=== PATIENT | female | born 1965 | race Caucasian/White ===

== ENCOUNTER 2016-03-08 22:52 | Emergency (ER) | payer OTHER ==
[~2016-03-08] VITALS: Ht 154.9 cm; Wt 76.4 kg
[~2016-03-08 22:52] MED LIST: CITA20TA11 PO; DOXE100C4 PO; KLO2T PO; TRAZ-115 PO
[2016-03-08 23:00] VITALS: BP 115/83; PULSE 91; RESP 16; O2SAT 86
--- NOTE | 2016-03-08 23:39 | ED.REPORT ---
HPI-URI / Cough / Cold Date of Service Mar 08, 2016 ED Provider: Doc,Ed MD Nursing Notes Stated Complaint: COUGH, NAUSEA, DIZZINESS Chief Complaint: Respiratory Complaints Allergies: Coded Allergies: codeine (Verified Allergy, Severe, 03/08/16) hydrocodone (Verified Allergy, Severe, Nausea,Vomiting, 03/08/16) Penicillins (Verified Allergy, Unknown, 03/08/16) Scheduled Citalopram (Citalopram) 20 Mg Tablet 20 MG PO DAILY Doxepin (Doxepin) 100 Mg Capsule 100 MG PO HS Trazodone (Trazodone) 50 Mg Tablet 100 MG PO HS Scheduled PRN Clonazepam (Clonazepam) 2 Mg Tab 2 MG PO DAILY PRN PRN For Anxiety General Time Seen by MD: 23:39 Past Medical History Past Medical History Chronic lower back pain Anxiety Reports: Hypertension Past Surgical History Reports: Cholecystectomy, Hysterectomy Smoking History Never Smoker Social History Alcohol Use: Denies alcohol use Drug Use: Denies drug use Ambulatory Status Independent Physical Exam Initial Vital Signs Vital Signs (First) Date Time Temp Pulse Resp B/P Pulse Ox O2 Delivery O2 Flow Rate FiO2 03/08/16 23:00 36.6 91 16 115/83 86 Room Air Interpretation & Diagnostics Lab Results Interpretation Test 03/08/16 00:11 03/09/16 00:11 Discharge & Departure Referrals: Nils Da Silva MD (PCP) Aron Strong DO Mar 08, 2016 23:39
--- NOTE | 2016-03-08 23:41 | ED.REPORT ---
HPI-General Illness Date of Service Mar 08, 2016 ED Provider: Cooper Valverde MD Patient is a 51 year old female who presents to the ED with a cough onset 1 month ago. Patient reports associated chest pain with cough, sore throat, and dizziness. Patient states that she purchased OTC medications for her cough symptoms, hoping that they would resolve. Patient is a nonsmoker and denies a history of asthma but she did receive an inhaler when she was last seen for her cough at Urgent Care. She admits to nausea but denies a fever or vomiting. Nursing Notes Stated Complaint: COUGH, NAUSEA, DIZZINESS Chief Complaint: Respiratory Complaints Nursing Notes Reviewed: Yes Allergies: Coded Allergies: codeine (Verified Allergy, Severe, 03/08/16) hydrocodone (Verified Allergy, Severe, Nausea,Vomiting, 03/08/16) Penicillins (Verified Allergy, Unknown, 03/08/16) Scheduled Citalopram (Citalopram) 20 Mg Tablet 20 MG PO DAILY Doxepin (Doxepin) 100 Mg Capsule 100 MG PO HS Prednisone (PredniSONE) 20 Mg Tablet 60 MG PO DAILY Trazodone (Trazodone) 50 Mg Tablet 100 MG PO HS Scheduled PRN Clonazepam (Clonazepam) 2 Mg Tab 2 MG PO DAILY PRN PRN For Anxiety General Time Seen by MD: 23:40 Chief Complaint Cough Hx Obtained From: Patient Arrived By: Walk-in Sudden in Onset?: No Onset Occurred: More than a week ago... (1 month) Symptom Duration: Since onset Location: : Chest (with cough) Recent Healthcare: No recent doctor visit, No recent hospitalization Similar Sx Previous: No Past Medical History Past Medical History Chronic lower back pain Anxiety Reports: Hypertension Past Surgical History Reports: Cholecystectomy, Hysterectomy Smoking History Never Smoker Social History Alcohol Use: Denies alcohol use Drug Use: Denies drug use Other Social History: Local resident Ambulatory Status Independent Review of Systems Full Review of Systems Constitutional: Reports: Chills, Denies: Fever Ears / Nose / Throat: Reports: Sore throat Respiratory: Reports: Non-productive cough, Pleuritic pain GI: Reports: Nausea, Denies: Vomiting Neurologic: Reports: Dizziness Physical Exam Vital Signs Vital Signs Date Time Temp Pulse Resp B/P Pulse Ox O2 Delivery O2 Flow Rate FiO2 03/09/16 01:48 89 16 147/90 98 Room Air 03/09/16 00:34 86 16 98 Room Air 1/17/17 23:00 36.6 91 16 115/83 86 Room Air Initial VS: Reviewed Abdomen / GI: Soft, Non-tender, No guarding, No rebound Extremities: Vascular intact, Neuro intact, No swelling Skin: Warm, Dry, No cyanosis Neurologic: Alert, Oriented, Nonfocal Psychiatric: Mood/affect normal, Behavior normal, Normal thought content General/Constitutional: Awake, Alert, No acute distress Behavior: Positive: Aggressive, Agitated, Anxious, Appears intoxicated, Combative, Developmental delay, Hostile, Hyperventilating, Restless, Tearful, Uncooperative, Withdrawn Appearance / Presentation: Positive: Ill appearing/not toxic (mildy ill appearing), Obese Head / Eyes: Atraumatic, Normocephalic, PERRL, Conjunctiva NL ENT: Airway patent Neck: Supple, Full range of motion Respiratory / Chest: No respiratory distress, No rales, No rhonchi deep bronchospastic cough Cardiovascular: Heart rate NL, Regular rhythm, Heart sounds NL Interpretation & Diagnostics Interpretation & Diagnostics: NEGATIVE FOR INFLUENZA TYPE A AND B Lab Results Interpretation Result Diagram: 03/08/16 2359 03/08/16 2359 Test 03/08/16 00:11 03/08/16 23:59 03/09/16 00:11 03/09/16 00:12 White Blood Count 8.1th/mm3 (3.8-10.1) Red Blood Count 4.36mil/mm3 (3.90-5.20) Hemoglobin 12.1g/dL (12.0-15.6) Hematocrit 36.4% (35.0-46.0) Mean Corpuscular Volume 83.5fL (81-100) Mean Corpuscular Hemoglobin 27.8pg (27.0-35.0) Mean Corpuscular Hemoglobin Concent 33.2% (32.0-37.0) Red Cell Distribution Width 13.4% (12.3-15.4) Platelet Count 296bil/L (150-400) Neutrophils (%) (Auto) 76.5% (40-74) Lymphocytes (%) (Auto) 11.1% (14-46) Monocytes (%) (Auto) 8.8% (4-12) Eosinophils (%) (Auto) 2.8% (0-5) Basophils (%) (Auto) 0.4% (0-3) Prothrombin Time 10.8sec (8.1-12.5) Prothromb Time International Ratio 1.01ratio Activated Partial Thromboplast Time 32.7sec (22.8-33.0) Sodium Level 137mEq/L (134-144) Potassium Level 4.1mEq/L (3.5-5.2) Chloride Level 97mEq/L (97-108) Carbon Dioxide Level 23mmol/L (18-29) Blood Urea Nitrogen 15mg/dL (6-24) Creatinine 0.78mg/dL (0.57-1.00) Estimat Glomerular Filtration Rate 112mL/min (>59) Glucose Level 108mg/dL (60-99) Calcium Level 9.3mg/dL (8.5-10.1) Magnesium Level 2.2mg/dL (1.6-2.6) Total Bilirubin 0.4mg/dL (0.0-1.2) Aspartate Amino Transf (AST/SGOT) 22U/L (0-50) Alanine Aminotransferase (ALT/SGPT) 25U/L (0-32) Alkaline Phosphatase 86U/L (25-150) Pro-B-Type Natriuretic Peptide 26pg/mL (0-249) Total Protein 7.3g/dL (6.4-8.4) Albumin 4.5g/dL (3.4-5.0) Hold Chao Top Tube Received (Received) Hold Urine Received (Received) ECG Interpretation ECG Interpretation: Sinus Rhythm, Rate 84 Time: 01:09 Interpreted by: ED physician Normal ECG Interpretation: No acute ischemic changes X-Ray Chest Interpretation Chest Xray Interpretation: Impression: No acute process. View: Portable Interpretation / Wet Read by: Interpret - Radiologist Re-Eval/Medical Decision Med Decision/Clinical Course 51-year-old with cough and bronchospasm. Much improved after treatment here with Decadron and albuterol. Home with albuterol and steroid course. Discharged in stable condition. Source of Hx: Old records Time of Eval: 01:21 Patient Status: Condition improved Re-Evaluation/Progress Note: Rechecked the patient, who is improved after breathing treatment. Discussed results of labs, EKG, and chest x-ray. Patient understands and agrees with the plan to be discharged home. Discharge instructions and follow-up discussed. All questions were addressed. Return to the ED warnings given. Counseled Regarding: Diagnosis, Lab results, Need for follow-up, When/why to return to ED Discharge & Departure Primary Impression: Bronchitis Additional Impression: Reactive airway disease that is not asthma Disposition: Home Discharge Condition All VS Reviewed: Yes Condition: Stable Patient Instructions: Reactive Airways Disease (ED) Additional Instructions: You have no evidence of pneumonia. Begin albuterol puffer two puffs every four hours as needed for cough. Prednisone three tablets daily for five days. Follow-up with your doctor in the office. Needle local physician, the doctors at the residency clinic will be happy to take care of you. Return if any immediate issues. Referrals: Nils Da Silva MD (PCP) Scribe Attestation Portions of this note were transcribed by Jaylyn Hayes. I, Dr. Valverde personally performed the history, physical exam and medical decision-making; I reviewed and confirmed the accuracy of the information in the transcribed note. Signed by: Blas Michelle, 03/09/2016 0133 copies to: Nils Da Silva MD, Christopher W MD Mar 08, 2016 23:41 Jaylyn Hayes Mar 08, 2016 23:48
[2016-03-08] MEDS ORDERED: 0.9% Sodium Chloride 1,000 ML IV ONE (23:47)
[2016-03-08] MEDS ORDERED: Dexamethasone 10 mg/mL Inj IVPUSH ONE (23:50)
[2016-03-08] MEDS ORDERED: Albuterol-Ipratropium 3 mL Inhalation Solution NEB ONE (23:50)
[2016-03-08] MEDS ORDERED: Albuterol 2.5 mg/3 mL Inhalation Solution NEB ONE (23:50)
[2016-03-09 00:28] LABS: BASOPHILS % (AUTO) 0.4 % (0-3); EOSINOPHILS % (AUTO) 2.8 % (0-5); MONOCYTES % (AUTO) 8.8 % (4-12); Mean Corpuscular Hemoglobin 27.8 pg (27.0-35.0); Mean Corpuscular Volume 83.5 fL (81-100); NEUTROPHILS % (AUTO) 76.5 % (40-74); Platelet Count 296 bil/L (150-400)
[2016-03-09 00:34] VITALS: PULSE 86; RESP 16; O2SAT 98
[2016-03-09 00:47] LABS: INR 1.01 ratio
[2016-03-09 01:05] LABS: Magnesium 2.2 mg/dL (1.6-2.6)
[2016-03-09] MEDS ORDERED: PRE20 PO (01:27)
[2016-03-09] MEDS ORDERED: _Albuterol-HFA 60 Puff Inhaler INHALATION PRN (01:30)
[2016-03-09 01:48] VITALS: BP 147/90; PULSE 89; RESP 16; O2SAT 98
--- NOTE | 2016-03-09 10:10 | DRSVH ---
PROCEDURE: X-RAY CHEST, TWO VIEWS ([id number]) INDICATIONS: 4 weeks cough TECHNIQUE: 2 views of the chest were acquired. COMPARISON: None. FINDINGS: Surgical changes and devices: Cholecystectomy clips. Lungs and pleura: No pleural effusions or pneumothorax. Lungs are clear. Mediastinum: Mediastinal contours are normal. Heart size is normal. Bones and chest wall: No suspicious bony abnormalities. Soft tissues appear unremarkable. IMPRESSION: No acute cardiopulmonary disease. Dictated by: Everardo Rangel [facility] Interpreted: Lexi Pedraza MD on 03/09/2016 at 10:09 Transcribed by: SHAKIRA on 03/09/2016 at 10:09 Approved by: Lexi Pedraza MD, PhD on 03/09/2016 at 16:55
== END 2016-03-09 01:58 | disposition home or self-care (01) ==
LOC: SED 22:52
DX: J40 Bronchitis, not specified as acute or chronic (principal); J98.8 Other specified respiratory disorders; J02.9 Acute pharyngitis, unspecified; R42 Dizziness and giddiness; R11.0 Nausea; I10 Essential (primary) hypertension; Z88.0 Allergy status to penicillin; Z88.5 Allergy status to narcotic agent
CPT/HCPCS: 36415; 71020; 80053; 82308; 83735; 83880; 85025; 85610; 85730; 87633; 87804; 93005; 94640; 96361; 96374; 99285; J1100; J7030; J7613; J7620

== ENCOUNTER 2016-08-12 23:10 | Emergency (ER) | payer OTHER ==
[~2016-08-12] VITALS: Ht 152.4 cm; Wt 77.3 kg
[~2016-08-12 23:10] MED LIST changes: +PRE20 PO
[2016-08-12 23:17] VITALS: BP 164/92; PULSE 86; RESP 16; O2SAT 98
[2016-08-12 23:32] VITALS: BP 147/78; PULSE 86; RESP 17; O2SAT 97
--- NOTE | 2016-08-13 00:25 | ED.REPORT ---
HPI-General Illness Date of Service Aug 13, 2016 ED Provider: Cooper Valverde MD The patient is a 51 year old female with a medical history including hypertension, anxiety, and depression who presents to the ED with a foreign body sensation at the base of her throat after taking a pill just prior to arrival. The patient felt as though the pill got stuck, with subsequent trouble swallowing, nausea, vomiting, and generalized weakness. She denies shortness of breath or other symptoms. The patient has never had similar symptoms in the past. Nursing Notes Stated Complaint: FOREIGN OBJECT IN THROAT Chief Complaint: General Complaint Nursing Notes Reviewed: Yes Allergies: Coded Allergies: codeine (Verified Allergy, Severe, 03/08/16) hydrocodone (Verified Allergy, Severe, Nausea,Vomiting, 03/08/16) Penicillins (Verified Allergy, Unknown, 03/08/16) Scheduled Citalopram (Citalopram) 20 Mg Tablet 20 MG PO DAILY Doxepin (Doxepin) 100 Mg Capsule 100 MG PO HS Omeprazole (Omeprazole) 20 Mg Tablet.dr 20 MG PO BID Prednisone (PredniSONE) 20 Mg Tablet 60 MG PO DAILY Trazodone (Trazodone) 50 Mg Tablet 100 MG PO HS Scheduled PRN Clonazepam (Clonazepam) 2 Mg Tab 2 MG PO DAILY PRN PRN For Anxiety General Time Seen by MD: 00:24 Chief Complaint Other (Foreign Body Sensation in Throat) Hx Obtained From: Patient Arrived By: Walk-in Sudden in Onset?: Yes Onset Occurred: Just prior to arrival Symptom Duration: Since onset Severity: Current: No pain currently Severity: Maximum: No pain Pertinent Negative: Relieved by nothing Context Related History: Reports Depression, Reports Psychiatric history Recent Healthcare: No recent doctor visit Similar Sx Previous: No Past Medical History Past Medical History Chronic lower back pain Anxiety Depression Reports: Hypertension Past Surgical History Reports: , Cholecystectomy, Hysterectomy Smoking History Never Smoker Social History Alcohol Use: Denies alcohol use Drug Use: Denies drug use Other Social History: Local resident Ambulatory Status Independent Review of Systems + Foreign body sensation at base of throat, trouble swallowing Full Review of Systems Constitutional: Reports: Weakness - generalized, Denies: Fever Respiratory: Denies: Non-productive cough, Shortness of breath GI: Reports: Nausea, Vomiting Complete sys rev & neg: except as marked. Physical Exam Vital Signs Vital Signs Date Time Temp Pulse Resp B/P Pulse Ox O2 Delivery O2 Flow Rate FiO2 08/13/16 01:50 75 13 144/79 95 Room Air 08/12/16 23:32 86 17 147/78 97 Room Air 08/12/16 23:17 36.6 86 16 164/92 98 Room Air Initial VS: Reviewed Skin: Warm, Dry, No cyanosis Neurologic: Alert, Oriented, Nonfocal Psychiatric: Mood/affect normal, Behavior normal, Normal thought content General/Constitutional: Awake, Alert, No acute distress Head / Eyes: Atraumatic, Normocephalic ENT: Airway patent, Mucous membranes moist, Pharynx NL Voice normal No foreign body felt or visualized Neck: Supple, Full range of motion, No swelling, Non-tender Respiratory / Chest: Breath sounds NL, Breath sounds = bilat, No respiratory distress, No stridor Cardiovascular: Heart rate NL, Regular rhythm, Heart sounds NL Interpretation & Diagnostics URINE TEST: Negative URINE DIPSTICK: Bedside Urine Specific [place] * 1.020 Bedside Urine pH * 5 Bedside Urine Leukocyte Esterase * Negative Bedside Urine Nitrite * Negative Bedside Urine Protein * ++ (100) Bedside Urine Glucose * Normal Bedside Urine Ketones * Negative Bedside Urine Urobilinogen * Normal Bedside Urine Bilirubin * Negative Bedside Urine Occult Blood * ~ 250 [place]/ml Urine to Lab * Yes Lab Results Interpretation Test 08/13/16 00:20 Hold Urine Received (Received) Re-Eval/Medical Decision Med Decision/Clinical Course 51-year-old with foreign body sensation in her throat after having a small pill stick there. Now resolved. Home with omeprazole for her heartburn symptoms. Taking fluids orally here without difficulty. No focal compromise or stridor no other dangerous findings. Source of Hx: Old records Time of Eval: 01:30 Patient Status: Condition improved Re-Evaluation/Progress Note: Patient is feeling better and able to tolerate PO fluids. Discussed with patient physical exam findings, diagnosis, and plan for discharge. Follow-up and return to the ER instructions given. Patient agrees with plan for care and all questions were addressed. Counseled Regarding: Diagnosis, Need for follow-up, When/why to return to ED Discharge & Departure Primary Impression: Foreign body in throat Encounter type: initial encounter Qualified Code: T17.208A - Unspecified foreign body in pharynx causing other injury, initial encounter Disposition: Home Discharge Condition All VS Reviewed: Yes Condition: Improved Patient Instructions: Foreign Body in Pharynx (ED) Additional Instructions: Follow-up with your doctor in the office. Return if any worsening difficulty swallowing or other new symptoms of concern Prilosec daily for ten days. Referrals: NOPCP (PCP) Scribe Attestation Portions of this note were transcribed by Sara Mary. I, Dr. Valverde, personally performed the history, physical exam, and medical decision-making; I reviewed and confirmed the accuracy of the information in the transcribed note. Signed by: Blas Vasquez, 08/13/2016, 02:20 Cooper Valverde MD Aug 13, 2016 00:25 SARA MARY Aug 13, 2016 00:32
[2016-08-13] MEDS ORDERED: Ondansetron 2 mg/mL 2 mL Inj IVPUSH ONE (00:30)
[2016-08-13] MEDS ORDERED: Pantoprazole 40 mg ER24 Tablet PO ONE (01:35)
[2016-08-13] MEDS ORDERED: OMEP20TA86 PO (01:39)
[2016-08-13 01:50] VITALS: BP 144/79; PULSE 75; RESP 13; O2SAT 95
== END 2016-08-13 01:51 | disposition home or self-care (01) ==
LOC: SED 23:10
DX: T17.208A Unspecified foreign body in pharynx causing other injury, initial encounter (principal); Y93.9 Activity, unspecified; Y92.9 Unspecified place or not applicable; Y99.9 Unspecified external cause status; I10 Essential (primary) hypertension; F41.8 Other specified anxiety disorders; Z88.0 Allergy status to penicillin; Z88.5 Allergy status to narcotic agent
CPT/HCPCS: 81025; 96374; 99284; J2405

== ENCOUNTER 2016-11-04 00:41 | Inpatient (IN) | payer OTHER ==
[~2016-11-04] VITALS: Ht 162.6 cm; Wt 76.4 kg
[2016-11-04] VITALS (10 sets, daily range): BP systolic 111–149; BP diastolic 55–82; PULSE 66–101; RESP 16–21; O2SAT 94–99
[~2016-11-04 00:41] MED LIST changes: +OMEP20TA86 PO
--- NOTE | 2016-11-04 00:54 | ED.REPORT ---
HPI-Chest Pain 40 and Over Date of Service Nov 04, 2016 ED Provider: Aron Strong DO Pt is a 51 year old female with a history of anxiety and HTN who presents to the ED via EMS complaining of substernal chest pain onset 15:00 yesterday. She c /o associated nausea, vomiting, SOB, headache, non-productive cough, and diarrhea. She denies fever and any other symptoms. The pt rates her pain as a 6/ 10, and described it as a constant pressure. The pt was provided ASA en route. Per pt, she missed a medication dose for her anxiety this morning and took it this morning. She states that she has experienced similar symptoms previously secondary to her anxiety. Nursing Notes Stated Complaint: COUGH,CHEST PAIN Chief Complaint: Chest Pain Nursing Notes Reviewed: Yes Allergies: Coded Allergies: codeine (Verified Allergy, Severe, 11/04/16) hydrocodone (Verified Allergy, Severe, Nausea,Vomiting, 11/04/16) Penicillins (Verified Allergy, Unknown, 11/04/16) Scheduled Citalopram (Citalopram) 20 Mg Tablet 20 MG PO DAILY Doxepin (Doxepin) 100 Mg Capsule 100 MG PO HS Omeprazole (Omeprazole) 20 Mg Tablet.dr 20 MG PO BID Prednisone (PredniSONE) 20 Mg Tablet 60 MG PO DAILY Trazodone (Trazodone) 50 Mg Tablet 100 MG PO HS Scheduled PRN Clonazepam (Clonazepam) 2 Mg Tab 2 MG PO DAILY PRN PRN For Anxiety General Time Seen by MD: 00:53 Chief Complaint Chest pain Hx Obtained From: Patient, EMS Arrived By: Ambulance Sudden in Onset?: No Onset Occurred: 5 - 8 hours ago Symptom Duration: Since onset Location: : Substernal Quality: Painful, Pressure Radiation: : Does not radiate Migration/Movement: Reports: None Severity: Current: Pain level 6 out of 10 Severity: Maximum: Pain level 6 out of 10 Recent Healthcare: No recent doctor visit, No recent hospitalization Similar Sx Previous: Yes Past Medical History Past Medical History Chronic lower back pain Anxiety Depression Reports: Hypertension Past Surgical History Reports: , Cholecystectomy, Hysterectomy Smoking History Never Smoker Social History Alcohol Use: Denies alcohol use Drug Use: Denies drug use Other Social History: Good social support, Local resident Ambulatory Status Independent Review of Systems Constitutional: Denies: Fever Respiratory: Reports: Non-productive cough, Shortness of breath Cardiovascular: Reports: Chest pain GI: Reports: Diarrhea, Nausea, Vomiting Neurologic: Reports: Headache Complete sys rev & neg: except as marked. Physical Exam Initial Vital Signs Vital Signs (First) Date Time Temp Pulse Resp B/P Pulse Ox O2 Delivery O2 Flow Rate FiO2 11/04/16 00:46 36.8 98 18 149/71 98 Room Air 11/04/16 02:46 2 Initial VS: Reviewed Head / Eyes: Atraumatic, Normocephalic Neck: Supple, Full range of motion Extremities: Vascular intact, Neuro intact Skin: Warm, Dry, No cyanosis Neurologic: Alert, Oriented, Nonfocal Psychiatric: Mood/affect normal, Behavior normal General/Constitutional: Awake, Alert Distress / Hydration: Positive: Distress moderate (secondary to pain, anxiety, and retching) Respiratory / Chest: Atraumatic, Breath sounds NL, Breath sounds = bilat Diffusely tender chest wall. She is clutching her chest secondary to pain. Reproducible pain of lower sternal border to palpation. Cardiovascular: Heart rate NL, Regular rhythm, Heart sounds NL, No murmurs Abdomen: Atraumatic, Soft Tenderness in RUQ and LUQ of abdomen. Interpretation & Diagnostics Lab Results Interpretation Result Diagram: 11/04/16 0050 11/04/16 0050 Test 11/04/16 00:50 11/04/16 02:15 White Blood Count 16.8th/mm3 (3.8-10.1) Red Blood Count 4.84mil/mm3 (3.90-5.20) Hemoglobin 13.6g/dL (12.0-15.6) Hematocrit 39.9% (35.0-46.0) Mean Corpuscular Volume 82.4fL (81-100) Mean Corpuscular Hemoglobin 28.1pg (27.0-35.0) Mean Corpuscular Hemoglobin Concent 34.1% (32.0-37.0) Red Cell Distribution Width 13.4% (12.3-15.4) Platelet Count 483bil/L (150-400) Neutrophils (%) (Auto) 81.8% (40-74) Lymphocytes (%) (Auto) 13.9% (14-46) Monocytes (%) (Auto) 3.7% (4-12) Eosinophils (%) (Auto) 0% (0-5) Basophils (%) (Auto) 0.2% (0-3) Sodium Level 137mEq/L (134-144) Potassium Level 4.4mEq/L (3.5-5.2) Chloride Level 98mEq/L (97-108) Carbon Dioxide Level 18mmol/L (18-29) Blood Urea Nitrogen 16mg/dL (6-24) Creatinine 0.82mg/dL (0.57-1.00) Estimat Glomerular Filtration Rate 106mL/min (>59) Glucose Level 154mg/dL (60-99) Calcium Level 10.4mg/dL (8.5-10.1) Magnesium Level 2.3mg/dL (1.6-2.6) Total Bilirubin 0.5mg/dL (0.0-1.2) Aspartate Amino Transf (AST/SGOT) 19U/L (0-50) Alanine Aminotransferase (ALT/SGPT) 19U/L (0-32) Alkaline Phosphatase 103U/L (25-150) Troponin T 0.010ug/L (0.0-0.011) Total Protein 8.6g/dL (6.4-8.4) Albumin 4.9g/dL (3.4-5.0) Lipase 33U/L (13-60) Urine Color Yellow (YELLOW) Urine Appearance Slightly cloudy Urine pH 8.5 (5.0-8.0) Urine Specific [place] 1.010 (1.003-1.035) Urine Protein 100mg/dL (NEG,TRACE) Urine Glucose (UA) Negativemg/dL (NEGATIVE) Urine Ketones 15mg/dL (NEGATIVE) Urine Occult Blood Trace (NEGATIVE) Urine Nitrite Negative (NEGATIVE) Urine Bilirubin Negative (NEGATIVE) Urine Urobilinogen 2.0mg/dL (NORMAL) Urine Leukocyte Esterase Negative (NEGATIVE) Urine RBC 3-10/hpf (0-2) Urine WBC 0-5/hpf (0-5) Urine Epithelial Cells Many/hpf (NONE-MOD) Urine Crystals None seen (NONE SEEN) Urine Bacteria Moderate/hpf (NONE-FEW) Urine Hyaline Casts None/lpf (NONE) Urine Granular Casts None seen (NONE SEEN) Urine Waxy Casts None seen (NONE SEEN) Urine Red Blood Cell Casts None seen (NONE SEEN) Urine White Blood Cell Casts None seen (NONE SEEN) Urine Mucus Present (None Seen) Urine Trichomonas None seen (NONE SEEN) Urine Yeast Few (NONE SEEN) Urinalysis Comment None Urine Culture Reflexed Indicated Hold Urine Received (Received) ECG Interpretation ECG Interpretation: Sinus rhythm with a rate of 84 No significant change compared with previous Time: 00:57 Interpreted by: ED physician X-Ray Chest Interpretation Chest Xray Interpretation: Negative. No pneumothorax. No infiltrates. View: Portable, 1 view Interpretation / Wet Read by: Wet read ED physician Re-Eval/Medical Decision Med Decision/Clinical Course The studies are pending at the conclusion of my shift. The pt is still complaining of chest pain, vomiting, and abdominal pain. CT is pending. Her first troponin came back negative. Care endorsed to Dr. Sierra at the end of my shift. Source of Hx: Old records Counseled Regarding: Diagnosis, Lab results Discharge & Departure Shift Change Sign-Out Patient Care Transferred: Yes Discussed Complaint(s): Yes Laboratory Evaluation: Lab evaluation discussed Imaging Studies: Ordered, not yet done Primary Impression: Chest pain Chest pain type: unspecified Qualified Code: R07.9 - Chest pain, unspecified Additional Impressions: Abdominal pain Abdominal location: unspecified location Qualified Code: R10.9 - Unspecified abdominal pain Leukocytosis Leukocytosis type: unspecified Qualified Code: D72.829 - Elevated white blood cell count, unspecified Discharge Condition All VS Reviewed: Yes Condition: Stable Referrals: DEMETRA (PCP) Care Transferred to: Dr. Sierra Care Transferred at: 03:00 Blas Attestation Portions of this note were transcribed by Zoila Alba. I, Dr. Strong personally performed the history, physical exam and medical decision-making; I reviewed and confirmed the accuracy of the information in the transcribed note. Signed by : Blas Powell, 11/04/16. copies to: Aron Sprague DO Nov 04, 2016 00:54 Zoila Gann Nov 04, 2016 01:30
[2016-11-04 00:59] LABS: BASOPHILS % (AUTO) 0.2 % (0-3); EOSINOPHILS % (AUTO) 0 % (0-5); MONOCYTES % (AUTO) 3.7 % (4-12); Mean Corpuscular Hemoglobin 28.1 pg (27.0-35.0); Mean Corpuscular Volume 82.4 fL (81-100); NEUTROPHILS % (AUTO) 81.8 % (40-74); Platelet Count 483 bil/L (150-400)
[2016-11-04] MEDS: HYDROmorphone 0.5 mg/0.5 mL iSecure Syringe IVPUSH PRN ×3 (01:50→06:40)
[2016-11-04 02:13] LABS: TROPONIN T 0.01 ug/L (0.0-0.011)
[2016-11-04 02:24] LABS: Magnesium 2.3 mg/dL (1.6-2.6)
[2016-11-04 02:44] LABS: APPEARANCE,URINE SLIGHTLY CLOUDY (CLEAR,HAZY); COLOR,URINE YELLOW (YELLOW); OCCULT BLOOD,URINE TRACE (NEGATIVE); PH,URINE 8.5 (5.0-8.0)
[2016-11-04 02:45] LABS: YEAST,URINE FEW (NONE SEEN)
[2016-11-04] MEDS ORDERED: Ondansetron 2 mg/mL 2 mL Inj IVPUSH PRN ×2 (02:45→05:15)
[2016-11-04] MEDS ORDERED: Alum-Mag Hydrox-Simeth 30 mL Suspension PO PRN (05:15)
[2016-11-04] MEDS ORDERED: Dextrose 5% 0.45% NaCl 1,000 ML IV SCH (05:15)
--- NOTE | 2016-11-04 08:09 | DRSVH ---
PROCEDURE: CT ANGIO CHEST PULMONARY EMBOLISM ([id number]) INDICATIONS: chest pain, short of breath, abdominal pain TECHNIQUE: After the administration of intravenous contrast, 2 mm thick sections acquired from the pulmonary api malvin to the posterior costophrenic angles. 3-dimensional maximum intensity projection (MIP) coronal a nd sagittal reformats were then acquired through the thorax. For radiation dose reduction, the follo wing was used: automated exposure control, adjustment of mA and/or kV according to patient size. COMPARISON: [facility], CT, BRAIN W/O CONTRAST, 06/24/2014, 13:29. FINDINGS: Image quality: Excellent. Pulmonary arteries: Pulmonary arteries are normal in size, and demonstrate no intraluminal filling d efects to suggest central pulmonary embolism. Lungs and pleura: Lungs are clear. No pleural effusions or pneumothorax. Central and peripheral ai rways are patent. Mediastinum: Heart size is normal, without pericardial effusion. No mediastinal or hilar adenopathy . Thoracic aorta is normal in caliber and enhancement. Esophagus is normal in caliber, without hiat al hernia. There is increased density in the anterior mediastinum. Bones and chest wall: No suspicious bony lesions. Ribs and thoracic spine appear intact throughout. Thyroid gland is present. No axillary or supraclavicular adenopathy. Abdomen: Fatty infiltration of the visualized liver. Otherwise the visualized upper abdominal solid o rgans appear normal in the early arterial phase of enhancement. IMPRESSION: 1. No CT evidence of acute pulmonary embolism. 2. Increased density in the anterior mediastinum. This finding may represent a benign congenital find ing such as residual thymus. Lymphoma is unlikely but cannot be excluded. 3. There are no urgent discrepancies with the preliminary report. Dictated by: Elpidio Arnold M.D. on 11/04/2016 at 8:03 Approved by: Elpidio Arnold M.D. on 11/04/2016 at 8:08
--- NOTE | 2016-11-04 08:13 | DRSVH ---
PROCEDURE: CT ABDOMEN AND PELVIS WITH CONTRAST ([id number]) INDICATIONS: chest pain, short of breath, abdominal pain TECHNIQUE: After the administration of intravenous contrast, 5 mm thick sections acquired from the diaphragm to the symphysis. 5 mm coronal and sagittal reformats were acquired. For radiation dose reduction, the following was used: automated exposure control, adjustment of mA and/or kV according to patient artie sweet COMPARISON: [facility], CT, CT ANGIO CHEST PE, 11/04/2016, 3:05. FINDINGS: Image quality: Excellent. ABDOMEN: Lung bases: Lung bases are clear. Heart size is normal. Solid organs: Liver and spleen are normal in size. Mild hepatic steatosis. Gallbladder is surgicall y absent. Biliary system is non dilated. Pancreas enhances normally. No adrenal nodules. Kidneys demonstrate normal size and enhancement, without hydronephrosis. Peritoneum and bowel: Bowel loops demonstrate normal wall thickness and caliber. No free fluid or a ir. Nodes and vessels: No retroperitoneal or mesenteric adenopathy by size criteria. Aorta and inferior vena cava are normal in size. Miscellaneous: No ventral hernias. PELVIS: Genitourinary: Bladder wall thickness is normal. Miscellaneous: No inguinal hernias or adenopathy. Bones: No suspicious bony lesions. No vertebral body compression fractures. IMPRESSION: 1. No CT evidence of acute abdominal or pelvic pathology. 2. Mild hepatic steatosis. 3. There are no discrepancies with the preliminary report. Dictated by: Elpidio Arnold M.D. on 11/04/2016 at 8:08 Approved by: Elpidio Arnold M.D. on 11/04/2016 at 8:11
--- NOTE | 2016-11-04 08:28 | DRSVH ---
PROCEDURE: X-RAY CHEST ONE VIEW, PORTABLE ([id number]) INDICATIONS: STERNAL CHEST PAIN TECHNIQUE: One view of the chest was acquired. COMPARISON: [facility], , CHEST 1VW (PORTABLE), 06/24/2014, 12:40. FINDINGS: Surgical changes and devices: None. Lungs and pleura: No pleural effusions or pneumothorax. Lungs are clear. Mediastinum: Mediastinal contours appear normal. Heart size is normal. Bones and chest wall: No suspicious bony lesions. Overlying soft tissues appear unremarkable. IMPRESSION: No radiographic evidence of acute cardiopulmonary pathology. Dictated by: Elpidio Arnold M.D. on 11/04/2016 at 8:24 Approved by: Elpidio Arnold M.D. on 11/04/2016 at 8:26
[2016-11-04 09:05] LABS: BASOPHILS % (AUTO) 0.2 % (0-3); EOSINOPHILS % (AUTO) 0.1 % (0-5); MONOCYTES % (AUTO) 4.2 % (4-12); Mean Corpuscular Hemoglobin 28.1 pg (27.0-35.0); Mean Corpuscular Volume 83.5 fL (81-100); NEUTROPHILS % (AUTO) 85.9 % (40-74); Platelet Count 373 bil/L (150-400)
[2016-11-04 09:35] LABS: Magnesium 2.3 mg/dL (1.6-2.6); Phosphorus 4.5 mg/dL (2.5-4.9)
[2016-11-04] MEDS ORDERED: ACYCLOVIR IV SCH (09:35)
[2016-11-04] MEDS ORDERED: Vancomycin Dose per Pharmacist XX SCH (09:35)
[2016-11-04] MEDS ORDERED: SODIUM CHLORIDE 0.9% IV SCH (09:35)
[2016-11-04] MEDS ORDERED: cefTRIAXone Inj 2,000 MG in Dextrose 5% Minibag Plus 50 ML IV ONE (10:27)
[2016-11-04] MEDS ORDERED: SERT50TA9 PO (10:48)
[2016-11-04] MEDS: 0.9% Sodium Chloride 1,000 ML IV SCH ×3 (10:56→23:46)
--- NOTE | 2016-11-04 10:57 | PCM.HPMED ---
Subjective Date of Service Nov 04, 2016 Primary Provider: Admitting Physician: Milagros Darnell DO Primary Care Physician: Gary Attending Physician: Sandra Emery MD Chief Complaint: Headache, nausea, abdominal pain, chest pain History of Present Illness: 59-year-old female with history of anxiety presented with a constellation of symptoms. 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 The patient started having nausea, became very weak. Patient only stayed at work for one hour, came home. Mild degree headache and nausea continued, but significantly improved at home. did not notice any signs of slurred speech, facial droop, confusion, chills or fever. Patient had one episode of vomiting. Patient went to work again after 5 hours staying at home, but started to feel more severe headache, persistent nausea, almost collapsed because of generalized weakness, shakiness, therefore was brought to the hospital. The emergency room VS 149/71, 98, 18, afebrile, 98% on RA, Lab showed leukocytosis, patient underwent CT chest angiogram, CT of abdomen and pelvis with contrast which did not reveal any signs of PE or any abdominal or pelvic pathology. Patient only received Ativan and Dilaudid in ED. Patient also noticed loose stools started yesterday, also so some blood at the end of the defecation, not mixed with stools, diffuse abdominal pain. Patient also developed dull chest pain this morning, radiate to her back, upon the time of interview, patient was already medicated with Dilaudid, denied any headache or abdominal pain or chest pain, SOB, cough, sputum, recent travel, pt denied using any drugs except marijuana for anxiety, rarely uses it, last time was about a week ago. Patient looked very weak, shaky, sleepy during the interview , unable to get more detailed history. Patient also complained of left-sided numbness, denied any weakness on the left side. pt always had difficulty of voiding, frequent urination, unchanged from baseline, denied burning on urination. Review of Systems: Pertinent positives as noted in history of present illness. All other systems were reviewed and are negative Allergies Coded Allergies: codeine (Verified Allergy, Severe, 11/04/16) hydrocodone (Verified Allergy, Severe, Nausea,Vomiting, 11/04/16) Penicillins (Verified Allergy, Unknown, 11/04/16) Home Medications Zoloft PMH As described above in history of present illness Patient was prescribed prednisone in the past because of "breathing problem", long time second hand smoking Surgical History Cholecystectomy Hysterectomy Family History Father was alcoholic, had a gastrectomy Social History Hx Alcohol Use: No Hx Substance Use: No Smoking Status: Never Smoker Additional Information lives with Exam Vital Signs Vital Sign - Last Date Time Temp Pulse Resp B/P Pulse Ox O2 Delivery O2 Flow Rate FiO2 11/04/16 09:47 36.6 84 16 123/77 94 Room Air 11/04/16 05:05 2 Exam middle age woman, Lethargic, weak, intentional tremor no JVD, MMM, no LAD RRR, nl s1, s2 no mrg CTAB, no w,c S,ND,epigastric/RUQ td, hypoactive BS+ warm, no edema, pulses 2/2 neuro: AAOx3, CN2-12 intact, mild decrease sensation on Left side. motor mildly weak throughout. 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 -appreciate ID input, -empirically started acyclovir, Ceftriaxone, vancomycin for now, -continue IVF NS 100cc/hr -awaits BCX, UCX -will pursue more w/u for OFFICE CLEANER infection, LP, brain MR -UTOX -trends fever curve, wbc, pct Chronic, stable anxiety d/o, hold off zoloft for now dispo:Patient will be admitted with inpatient status with expectation of inpatient therapy for more than 2 midnights diet:general dvt ppx:LMWH Full code Time spent 65 minutes Sandra Emery MD Nov 04, 2016 10:35
[2016-11-04] MEDS ORDERED: Vancomycin Inj 1,750 MG in 0.9% Sodium Chloride 500 ML IV ONE (11:00)
[2016-11-04] MEDS ORDERED: LORazepam 2 mg Tablet PO ONE (11:10)
[2016-11-04] MEDS ORDERED: LORazepam 2 mg Tablet PO PRN (11:10)
--- NOTE | 2016-11-04 14:32 | NUR ---
Shift note Pt admitted right before Day shift. Admit RN completed admit charting. Pt nauseated, and vomiting this am, at bedside. Held abx/antiviral order by Dr Emery, awaiting BCx, when drawn, was told by Dr Matos (ID) to hold off for now. Dr Emery notified. No further emesis from pt.
--- NOTE | 2016-11-04 14:44 | CONS ---
[address] [address] CONSULTATION REPORT PATIENT: CHRISTIAN ARROYO : 1965 MR#: [id number] ADMIT: 11/04/2016 JOB ID: [id number] INFECTIOUS DISEASE CONSULTATION: DATE OF SERVICE: 11/04/2016 REQUESTING PHYSICIAN: Sandra Emery MD I thank, Dr. Emery, for this timely consult. REASON FOR CONSULTATION: Possible TRUSS DESIGNER infection. HISTORY OF PRESENT ILLNESS: The patient is a 51-year-old woman who works at [employer] which is a local facility for people with memory problems and dementia. 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 She has a longstanding history of anxiety, depression, hypertension, and chronic pain. Otherwise, she is in reasonable health. She tells us that yesterday while at work she bent over apparently and suddenly had a loss of consciousness. She is not exactly sure what she struck on the way down but thinks she may have hit herself on the side of the head perhaps striking a bed or a mattress. Following this event, she developed a wide variety of symptoms including chest pain, which led to her evaluation in the ED and subsequent admission to this hospital. She also related a rather complex story of multiple other symptoms of varying durations. These include a headache which has been present; her says for as long as three years which waxes and wanes. It is typically quite severe for a couple of days then goes away. It sounds as if this is sometimes accompanied by GI symptomatology. More recently she has had more nausea, vomiting and loose stools. These loose stools are on the border of diarrhea but sound more semi-formed than anything and tend to occur in greater and lesser frequency in some sort of cyclical pattern. Following the fall incident yesterday, the chest pain, on ER evaluation her headache has been perhaps more pronounced than it has been ordinarily but thinking is clear today and she denies significant fevers, chills, confusion or change in vision. She notes she had some chronic blurry vision worse at night. She also notes she has had some sore throat today but that is perhaps related to some persistent vomiting over the past 24 hours. At this point, both she and her are very concerned that the headaches, nausea, vomiting, semi-formed stool, chest pain and a nonproductive cough that has developed recently are all part and parcel of some underlying condition which needs to be diagnosed and managed appropriately. It is because of these many threads of concern that ID has been consulted with the specific question as to whether she may have a TRUSS DESIGNER infection such as encephalitis or meningitis. PAST MEDICAL HISTORY: 1. Anxiety and depression. 2. Hypertension. 3. Chronic pain. SOCIAL HISTORY: The patient was born in [facility] and subsequently lived in the [place]. She has never lived outside the [place]. She is a nondrinker. Does not use illicit drugs and smoked only briefly as a teenager. FAMILY HISTORY: Negative for TB in first and second-degree relatives. REVIEW OF SYSTEMS: The patient has had these waxing and waning headaches for about three years which sound migrainous though that diagnosis has never been applied to them. In addition she has blurry vision which tends to be worse as she gets older, especially at night. She has some sore throat which followed nausea and vomiting. The nausea and vomiting started perhaps yesterday and may be in some way correlated with this fall though that is not clear. She does also have rather diffuse mild abdominal pain and intermittent semi-formed stools. She has no dysuria, urgency, frequency. She does note that she has areas of pruritus and often has scabs from vigorous itching, and her reports this is a chronic thing perhaps related to anxiety. The patient adamantly denies use the use of methamphetamines and certainly sounds believable in that regard. She has had no focal motor complaints. She notes that all of her joints hurt and this has apparently also been recent in onset. She notes she has a bit of a dry cough but she is not short of breath. Sometimes she brings up some whitish sputum. Remainder of the review of systems is negative. PHYSICAL EXAMINATION: Reveals an afebrile woman, temp 36.6, pulse 84, respiratory rate 16, blood pressure 123/77. She is saturating well on room air. She does not appear to be in acute distress, though she does appear perhaps a bit anxious. Examination the head reveals no evidence of trauma as might be sustained in a significant fall. Her eyes are without conjunctivitis or scleral icterus. Her sinuses are nontender. Oral cavity: No thrush or hairy leukoplakia. Neck is supple, but interestingly when the patient flexes her neck, which she does very easily, she says she feels suddenly dizzy raising the question of some sort of positional dizziness or vertigo. Her lungs are quite clear. Cardiac tones regular rate and rhythm. I initially thought I heard a murmur in the right upper sternal border but I cannot convince myself of that and I think she probably has no murmur. The abdomen is diffusely tender to palpation almost everywhere without rebound or guarding. No organomegaly or ascites is appreciated. There is no suprapubic tenderness. She does not have a Back catheter, and in fact was on the bed gerardo when I saw her. Her joints are without evidence of synovitis. She has full range of motion. She has excellent strength with normal sensation. No skin rash noted except for a few lesions that might be consistent with skin picking or itching scattered on her extremities; none of which appear infected. LABORATORY DATA: Labs include white blood count 12,600, 86% segs, so she has a bit of a left shift. Creatinine 0.69. LFTs completely normal. Procalcitonin 0 x2, and these levels are extraordinarily low. Urinalysis without any white cells. Micro studies include a pending urine culture. Blood cultures were just done as the patient did not have these done in the emergency department. IMAGING: So far includes a variety of scans including a chest x-ray which is clear. CT scan of the chest which did not show pulmonary embolism, showed increased density in the anterior mediastinum which could be residual thymus but lymphoma cannot be excluded interestingly on the CT scan, and this would bear watching and/or close followup. CT of the abdomen was also done. This shows basically nothing. IMPRESSION: This is a bit of a confusing case of a woman with syncope yesterday and some associated noncardiac chest pain who has a wide variety of symptoms that are a little hard to put together. She has headaches which sound migrainous which may be worse lately as well as some largely nonproductive cough which may be new, some nausea and vomiting which definitely does sound like it is new, and some possible diarrhea though I do not think this would meet the formal definition of diarrheal syndrome. She also complains of diffuse arthralgias, some malaise and has a wide variety of nonfocal symptomatology. A couple of ways to put this together might be some worsening of her chronic underlying anxiety and depression with some irritable bowel syndrome and that explanation of course would leave out any infection. It is also possible she has an acute upper respiratory tract infection and/or acute gastrointestinal viral process perhaps related to her contact with the many chronically ill and elderly patients at [facility]. I do not see any evidence in this lucid completely oriented woman with a supple neck and negative procalcitonin for either herpes encephalitis nor acute bacterial meningitis. RECOMMENDATIONS: 1. I would discontinue meningitis precautions at this point, as I think there is no chance she has meningococcal meningitis. 2. I agree with plans to pursue an MRI scan of the brain as she has had falls and worsening headaches which are a major problem for her. 3. I would get a multiplex respiratory PCR panel. 4. I would get a stool multiplex PCR panel to see if we can use either one of these tests to nail down a viral diagnosis. 5. Lumbar puncture is questionably indicated in this case. The initial story was that the patient's headaches were new and severe but this story seems to be that she has ongoing and recurring headaches, but this particular episode may be more severe than most and may have been associated with syncope, so in spite of her supple neck and my low index of suspicion, I think we can proceed and do it. Both the patient and her want a comprehensive workup as they think that her multiple problems are in some way related and are getting worse and I think is not unreasonable to perform this fairly low risk procedure with the multiplex PCR to absolutely exclude the possibility of TRUSS DESIGNER infection though I find it extremely unlikely. 6. I would withhold antibiotics and antivirals at this time. 7. I feel the patient still needs workup as indicated by the hospitalist and other services indicated for what sounds like true syncope yesterday which would be quite worrisome in a 51-year-old woman without any history of cardiovascular disease. 8. Her anterior mediastinal abnormality will require some followup. In the absence of any clinical evidence of lymphoma such followup made just include another CT scan in a period of months as her primary care doctor sees fitJerzy
--- NOTE | 2016-11-04 16:10 | NUR ---
Off floor to MRI
--- NOTE | 2016-11-04 16:50 | NUR ---
Return from MRI
[2016-11-05] VITALS (9 sets, daily range): BP systolic 116–146; BP diastolic 69–88; PULSE 69–84; RESP 16–20; O2SAT 93–98
--- NOTE | 2016-11-05 01:56 | NUR ---
Neuro: Upon initial assessment, pt and stated that pt has had L sided numbness and when brought to ED had L facial droop and eye droop. This RN did a neuro assessment, pt states L side, face/arms/legs/feet are numb. When asked to smile, pt's smile was equal but unable to produce a big smile. 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 Around 0100 pt's requested RN to reassess pt. Pt states her L face feels worse, unable to produce much of a smile, no drooping noted, PATEL 5. MD contacted, CT w/o contrast ordered STAT; no significant findings. Pt did have an MRI prior to NOC shift; no results at this time. at bedside. Will continue to monitor.
--- NOTE | 2016-11-05 05:56 | NUR ---
NOC Shift: Pt slept the remainder of the shift, at bedside. Denies SOB and pain. Pleasant and cooperative with care.
[2016-11-05 06:47] LABS: BASOPHILS % (AUTO) 0.3 % (0-3); EOSINOPHILS % (AUTO) 0.6 % (0-5); MONOCYTES % (AUTO) 7.7 % (4-12); Mean Corpuscular Hemoglobin 27.8 pg (27.0-35.0); Mean Corpuscular Volume 86.1 fL (81-100); NEUTROPHILS % (AUTO) 60.8 % (40-74); Platelet Count 302 bil/L (150-400)
--- NOTE | 2016-11-05 07:10 | DRSVH ---
PROCEDURE: MRI BRAIN WITHOUT CONTRAST ([id number]) INDICATIONS: Possible central nervous system infection. Progressive pain. TECHNIQUE: Noncontrast axial T1 spin echo, axial T2 fast spin echo, sagittal and axial FLAIR, coronal T2 fast sp in echo, axial gradient echo, axial diffusion and ADC through the brain. COMPARISON: [facility], CT, CT BRAIN WO CON, 11/05/2016, 1:35. FINDINGS: Image quality: Excellent. CSF Spaces: Basal cisterns are patent. No extra-axial fluid collections. Ventricles are normal in size and shape. Brain: No intracranial masses or hemorrhage. Alegria/white matter interface is normal. Brainstem appe ars normal. Diffusion-weighted images demonstrate no acute ischemic insult. No chronic ischemic ins ults. Normal intravascular flow voids are present. Skull and face: Calvarium has normal marrow signal. Orbits appear normal. Sinuses: Sinuses and mastoids are clear. IMPRESSION: Normal for age. Source of current symptoms is not seen. Dictated by: Jerry Lucas M.D. on 11/05/2016 at 7:05 Approved by: Jerry Lucas M.D. on 11/05/2016 at 7:08
[2016-11-05 07:41] LABS: Magnesium 2.3 mg/dL (1.6-2.6); Phosphorus 3.4 mg/dL (2.5-4.9)
--- NOTE | 2016-11-05 08:19 | DRSVH ---
PROCEDURE: CT BRAIN WITHOUT CONTRAST ([id number]) INDICATIONS: worsening left side facial weakness TECHNIQUE: Noncontrast 4.5 mm thick angled axial sections acquired from the foramen magnum to the vertex, with c oronal reformats. COMPARISON: [facility], MR, BRAIN WITHOUT CONTRAST, 07/09/2014, 18:12. [facility], CT, BRAIN W/O CONTRAST, 06/24/2014, 13:29. FINDINGS: Image quality: Excellent. CSF spaces: Basal cisterns are patent. No extra-axial fluid collections. Ventricles are normal in size and shape. Brain: No midline shift. No intracranial masses or hemorrhage. Alegria-white matter interface is norm al. Skull and face: Calvarium and visualized facial bones are intact, without suspicious lesions. Sinuses: Visualized sinuses and mastoids are clear. IMPRESSION: No acute intracranial disease process. Dictated by: Lexi Pedraza MD, PhD on 11/05/2016 at 8:15 Approved by: Lexi Pedraza MD, PhD on 11/05/2016 at 8:17
[2016-11-05] MEDS ORDERED: cefTRIAXone Inj 2,000 MG in Dextrose 5% Minibag Plus 50 ML IV SCH (08:30)
[2016-11-05] MEDS: 0.9% Sodium Chloride 1,000 ML IV SCH ×2 (09:58→20:06)
--- NOTE | 2016-11-05 18:05 | PCM.PNMED ---
Subjective Date of Service Nov 05, 2016 Subjective Has had a couple episodes today of the left sided numbness, indicating both her arm and her leg. has not noted any further episodes of facial droop. She has been up to the bathroom but still feels quite weak. She says she did actually pass out yesterday prior to admission. 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 She has been nothing by mouth, does not have any nausea or vomiting. Has not yet had a bowel movement (stool tests ordered). She has not been diagnosed with migraines but states that she's had episodic headaches for many years accompanied by some light sensitivity but no nausea, usually on the top of her head and not unilateral. Exam Vital Signs Vital Sign - Last Date Time Temp Pulse Resp B/P Pulse Ox O2 Delivery O2 Flow Rate FiO2 11/05/16 17:37 36.6 69 16 145/88 97 Room Air 11/05/16 04:50 1.50 Intake and Output 11/04/16 11/04/16 11/05/16 Cumulative From/Thru 15:00 23:00 07:00 11/04/16 00:46 - 11/05/16 06:42 Intake Total 862 ml 843 ml 1705 ml Output Total 550 ml 225 ml 775 ml Balance 312 ml 618 ml 930 ml Intake Oral 0 ml 0 ml 0 ml IV Total 862 ml 843 ml 1705 ml Output Urine Total 400 ml 225 ml 625 ml Emesis 150 ml 150 ml # Bowel Movements 0 0 Exam General: Alert and oriented, no acute distress Heart: Regular Lungs: Clear Abdomen: Soft, non-tender, bowel tones present Extremities: No pedal edema Neuro: No facial asymmetry, 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, poor effort when raising legs off the bed against Resistance bilaterally but may have less strength on the left IVs and Medications Medications Reviewed: Medications were reviewed in detail Lab and Diagnostics Result Diagram: 11/05/1654011/05/16540 Assessment & Plan Episodes of left-sided numbness, possibly with some unilateral weakness ( although mostly complaining of generalized weakness) - Head CT and MRI with no evidence of stroke, consider TIA, as have long- standing episodic headaches so migraine is also a possibility - We'll begin aspirin 81 mg daily - Obtain carotid ultrasound Possible syncopal episode (versus severe generalized weakness and/or hypotension ) - Is being monitored on telemetry, no significant arrhythmias so far - Obtain echocardiogram - Check ESR (assess for possible polymyalgia rheumatica although symptoms not that consistent) Possible chest pain and/or epigastric discomfort, episodic and not currently present - Daughter has requested a troponin level which has been ordered - Currently not having abdominal pain, nausea or vomiting so we will resume general diet but have her start initially with liquids or soft and advance as tolerated No evidence so far of acute infectious process - Per Dr. Matos's recommendations antibiotics have been discontinued Anterior mediastinal abnormality on chest CT scan - Follow up as an outpatient Patient states she's been prescribed an inhaler in the past and occasionally feels short of breath and would like to have this ordered for her which was done dispo:Patient admitted with inpatient status with expectation of inpatient therapy for more than 2 midnights diet:general dvt ppx:LMWH Full code Carmencita Noland MD Nov 05, 2016 18:05
--- NOTE | 2016-11-05 19:34 | NUR ---
Neuro and Other General Symptoms: Patient stating she is experiencing numbness in left extremities and left cheek. When assessing for sensation states that she can feel touch however it is decreased compared to the right side. 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 Patient states she has experienced general weakness and fatigue for "about a month." During am assessment, patient stated she has had a cough for three days and she had discomfort in her chest w/cough. Denies any other pain. MD aware. During a rounds visit in evening, patient and family began questioning the patients chest pain. Asked for clarification, as she had stated earlier in shift that she was having discomfort in chest from a persistent cough. The family then stated "that's what she came in for was chest pain!" During afternoon assessment, patient stating that she will occasionally feel a pain 1/10 in upper Rt abdominal area "especially when I press on it". Denies nausea. MD aware of all symptoms relating to chest, abdomen and neuro.
[2016-11-05] MEDS ORDERED: Albuterol 2.5 mg/3 mL Inhalation Solution NEB PRN (20:00)
[2016-11-06] VITALS (9 sets, daily range): BP systolic 119–143; BP diastolic 73–87; PULSE 70–88; RESP 18–20; O2SAT 90–97
[2016-11-06] MEDS: 0.9% Sodium Chloride 1,000 ML IV SCH (06:23)
[2016-11-06] MEDS ORDERED: Pantoprazole 40 mg ER24 Tablet PO ONE (08:50)
[2016-11-06] MEDS ORDERED: Pantoprazole 40 mg ER24 Tablet PO SCH (08:59)
--- NOTE | 2016-11-06 09:06 | DRSVH ---
[facility] [address] [place] [address] Echocardiogram Report Name: CHRISTIAN ARROYO DStudy Date: 11/06 Height: 64 in Hospital Exam Location: [facility] Weight: 16 8 lb Gender: Female BSA: 1.8 m2 : 1965 Age: 51 yrs BP: 126/73 mmHg Reason For Study: SYNCOPE Ordering Physician: [facility] Performed By: Ruthie Hoffman Referring Phys[facility] Interpret[facility] Summary Left ventricular systolic function is normal without focal wall motion abnormalities with the ejection fraction visually estimated to be 60-65%. There is borderline concentric left ventricular hypertrophy with normal diastolic parameters suggesting normal left ventricular diastolic function and normal filling pressures. The right ventricle is normal in size and function. Pulmonary artery pressures cannot be estimated because of the lack of a measurable TR jet velocity but the IVC suggests a low right atrial pressure of 3 mm Hg. Both atria are normal in size. There is no significant valvular heart disease. Procedure: A two-dimensional transthoracic echocardiogram with color flow and Doppler was performed. The study quality was technically adequate. There is no prior echocardiogram noted for this patient. The patient was in normal sinus rhythm during the exam. Left Ventricle: The left ventricle is normal in size. There is borderline concentric left ventricular hypertrophy. There is mild proximal septal thickening noted. There is no echo evidence for significant left ventricular outflow tract obstruction. Left ventricular systolic function is normal without focal wall motion abnormalities. The ejection fraction is estimated to be 60-65%. Assessment of diastolic parameters indicates normal left ventricular diastolic function and normal filling pressures. Right Ventricle: The right ventricle is normal in size and function. Atria: Both atria are normal in size. There is no Doppler evidence for an interatrial shunt. Mitral Valve: The mitral valve is normal. There is trace mitral regurgitation. Aortic Valve: The aortic valve is normal in structure and function. The aortic valve is trileaflet. The aortic valve opens well. No aortic regurgitation is present. Tricuspid Valve: The tricuspid valve is normal. There is a trace or physiologic amount of tricuspid regurgitation. Pulmonary artery pressures cannot be estimated because of the lack of a measurable TR jet velocity. Pulmonic Valve: The pulmonic valve leaflets are thin and pliable; valve motion is normal. There is a trace or physiologic amount of pulmonic regurgitation. There is no significant valvular heart disease. Great Vessels: The aortic root is normal size. The ascending aorta is normal in size. The aortic arch is normal in size. The pulmonary artery is normal size. The IVC is of normal diameter and collapses greater than 50% with a sniff. This suggests a low right atrial pressure of 3 mm Hg. Pericardium/ Pleura There is no pericardial effusion. There is no pleural effusion. MMode/2D Measurements & Calculations LVIDd: 4.5 cm LVIDs: 2.8 cm LA A2 area: 16.5 cm FS: 36.8 % LA A4 area: 17.6 cm EPSS: 0.15 cm LA length (vol): 4.7 cm IVSd: 1.4 cm LA vol: 52.3 ml LVPWd: 0.96 cm LA vol index: 28.8 ml/m IVC diam: 1.5 cm RA long axis: 4.4 cm LVOT diam: 2.1 cm RA area: 13.7 cm AoV Openin.6 cm RA vol: 36.1 ml Ao root diam: 3.1 cm RA : 19.9 ml/m2 asc Aorta Diam: 3.2 cm Ao Arch Diam (Prox Trans): 2.9 cm LV el. diameter/BSA (cm/m^2): 2.5 LV sys. diameter/BSA (cm/m^2): 1.6 RVD1 (basal): 3.2 cm RVD2 (mid): 2.4 cm TAPSE: 2.0 cm Doppler Measurements & Calculations Ao V2 max: 128.2 cm/sec MV E max kirk: 85.8 cm/sec Ao max P.6 mmHg MV A max kirk: 73.8 cm/sec Ao mean P.1 mmHg MV P1/2t: 51.1 msec LVOT Max Kirk: 88.8 cm/sec GUMARO(I,D): 2.7 cm sev ratio: 0.78 MV E/A: 1.2 TR max kirk: 187.2 cm/sec Med Peak E' Kirk: 11.1 cm/sec TR max P.0 mmHg E/E' med: 7.7 PA V2 max: 58.7 cm/sec Lat Peak E' Kirk: 11.2 cm/sec PA mean P.81 mmHg E/E' lat: 7.6 E/e' average: 7.7 MV dec time: 0.17 sec MV P1/2t max kirk: 86.4 cm/sec MVA(P1/2t): 4.3 cm2 Ao V2 mean: 82.0 cm/sec LV V1 max P.2 mmHg Ao V2 VTI: 25.5 cm LV V1 VTI: 20.0 cm GUMARO(V,D): 2.4 cm2 PA V2 mean: 42.6 cm/sec GUMARO indexed to BSA (cm^2/m^2): 1.5 PA pr(Accel): 30.2 mmHg Reading Physician:09:05 AM
[2016-11-06 10:17] LABS: Unsaturated Iron Binding 231.7 ug/dL
--- NOTE | 2016-11-06 10:56 | NUR ---
Chest Pain: Patient reported having chest pain 4/10 similar to what she experiences with her anxiety. Described as dull, increasing with deep breath. Denies any other pain, shortness of breath, nausea, palpitations, dizziness, lightheadedness. Echo being performed at time of report of chest pain. O2 saturation mid to upper 90s, room air. MD notified. Ativan administered. On reassessment, patient states chest pain has relieved. Will continue to monitor.
--- NOTE | 2016-11-06 13:37 | NUR ---
Evaluation completed/discharge to nsg Please go to "Notes" then click on "Assessments and Notes" (bottom left corner of screen). Then select appropriate discipline tab on top of screen.
--- NOTE | 2016-11-06 15:07 | PCM.DIMED ---
Discharge Instructions Date of Service Nov 06, 2016 Dates of Hospitalization Nov 04, 2016 at 06:01 Diet Discharge Diet: No restrictions Activity Discharge Activity: No restrictions Call your provider Call your provider for: Weakness (unilateral) (that is persistent) Patient Instructions Follow-up with PCP in: 1 week Carmencita Noland MD Nov 06, 2016 15:07
[2016-11-06] MEDS ORDERED: ASPI81TA3 PO (15:08)
[2016-11-06] MEDS ORDERED: PANT40TA3 PO (15:08)
--- NOTE | 2016-11-06 15:24 | PCM.DC.MED ---
Discharge Summary Date of Service Nov 06, 2016 Dates of Hospitalization Date of Hospital Admission Nov 04, 2016 at 06:01 Date of Discharge: Nov 06, 2016 Providers: Admitting Physician: Milagros Darnell DO Primary Care Physician: Gary Attending Physician: Carmencita Leon MD Brief History 59-year-old female with history of anxiety presented with a constellation of symptoms. 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 The patient started having nausea, became very weak. Patient only stayed at work for one hour, came home. Mild degree headache and nausea continued, but significantly improved at home. did not notice any signs of slurred speech, facial droop, confusion, chills or fever. Patient had one episode of vomiting. Patient went to work again after 5 hours staying at home, but started to feel more severe headache, persistent nausea, almost collapsed because of generalized weakness, shakiness, therefore was brought to the hospital. The emergency room VS 149/71, 98, 18, afebrile, 98% on RA, Lab showed leukocytosis, patient underwent CT chest angiogram, CT of abdomen and pelvis with contrast which did not reveal any signs of PE or any abdominal or pelvic pathology. Patient only received Ativan and Dilaudid in ED. Patient also noticed loose stools started yesterday, also so some blood at the end of the defecation, not mixed with stools, diffuse abdominal pain. Patient also developed dull chest pain this morning, radiate to her back, upon the time of interview, patient was already medicated with Dilaudid, denied any headache or abdominal pain or chest pain, SOB, cough, sputum, recent travel, pt denied using any drugs except marijuana for anxiety, rarely uses it, last time was about a week ago. Patient looked very weak, shaky, sleepy during the interview , unable to get more detailed history. Patient also complained of left-sided numbness, denied any weakness on the left side. pt always had difficulty of voiding, frequent urination, unchanged from baseline, denied burning on urination. Hospital Course # Episodes of left-sided numbness, possibly with some unilateral weakness ( although mostly complaining of generalized weakness) - Head CT and MRI with no evidence of stroke, consider TIA, also has long- standing episodic headaches so migraine is also a possibility - We'll begin aspirin 81 mg daily - carotid ultrasound but not able to obtain on the weekend, this could be done as an outpatient to be arranged by her PCP - ESR 16 - PT evaluation done but they did not feel she needed further PT services Possible syncopal episode (versus severe generalized weakness and/or hypotension ) - monitored on telemetry, no significant arrhythmias noted - no orthostatic hypotension (by the day of discharge, not checked earlier), did receive IVFs - echocardiogram unremarkable Possible chest pain and/or epigastric discomfort, episodic and not currently present - troponin negative - initially NPO but since no further abdominal pain, nausea or vomiting general diet resumed which she tolerated - episode of chest pain on morning of discharge - to the left of mid sternum where she has some tenderness of costochondral joints - she felt chest pain was related to her anxiety and it resolved with Ativan - reports 4 months of occl sharp epig pain, usually after eating, hx reflux and took prilosec in the past, started on Protonix No evidence so far of acute infectious process - Per Dr. Matos's recommendations antibiotics have been discontinued Anterior mediastinal abnormality on chest CT scan ("Increased density in the anterior mediastinum. This finding may represent a benign congenital finding such as residual thymus. Lymphoma is unlikely but cannot be excluded.") - Follow up as an outpatient, discussed with patient and Possible mild normocytic anemia (Hgb initially 13.6 but dropped to 11.0 after IVF) - stool guaiacs ordered but none obtained - iron panel normal - follow up as outpatient Patient states she's been prescribed an inhaler in the past and occasionally feels short of breath and would like to have this ordered for her which was done Exam Vital Signs (Last) Date Time Temp Pulse Resp B/P Pulse Ox O2 Delivery O2 Flow Rate FiO2 11/06/16 15:05 88 130/86 11/06/16 12:47 36.4 18 90 Room Air 11/05/16 04:50 1.50 Exam General: Alert and oriented, no acute distress Heart: Regular Lungs: Clear Chest: tenderness over left mid costrochondral joints Abdomen: Soft, non-tender Extremities: No pedal edema Neuro: no apparent deficits Test 11/04/16 00:50 11/04/16 02:15 11/05/16 05:41 11/06/16 09:05 Lipase 33U/L (13-60) Thyroid Stimulating Hormone (TSH) 2.690uIU/mL (0.450-4.500) Free Thyroxine 0.98ng/dL (0.82-1.77) Urine Color Yellow (YELLOW) Urine Appearance Slightly cloudy Urine pH 8.5 (5.0-8.0) Urine Specific [place] 1.010 (1.003-1.035) Urine Protein 100mg/dL (NEG,TRACE) Urine Glucose (UA) Negativemg/dL (NEGATIVE) Urine Ketones 15mg/dL (NEGATIVE) Urine Occult Blood Trace (NEGATIVE) Urine Nitrite Negative (NEGATIVE) Urine Bilirubin Negative (NEGATIVE) Urine Urobilinogen 2.0mg/dL (NORMAL) Urine Leukocyte Esterase Negative (NEGATIVE) Urine RBC 3-10/hpf (0-2) Urine WBC 0-5/hpf (0-5) Urine Epithelial Cells Many/hpf (NONE-MOD) Urine Crystals None seen (NONE SEEN) Urine Bacteria Moderate/hpf (NONE-FEW) Urine Hyaline Casts None/lpf (NONE) Urine Granular Casts None seen (NONE SEEN) Urine Waxy Casts None seen (NONE SEEN) Urine Red Blood Cell Casts None seen (NONE SEEN) Urine White Blood Cell Casts None seen (NONE SEEN) Urine Mucus Present (None Seen) Urine Trichomonas None seen (NONE SEEN) Urine Yeast Few (NONE SEEN) Urinalysis Comment None Urine Culture Reflexed Indicated Hold Urine Received (Received) White Blood Count 7.8th/mm3 (3.8-10.1) Red Blood Count 3.96mil/mm3 (3.90-5.20) Hemoglobin 11.0g/dL (12.0-15.6) Hematocrit 34.1% (35.0-46.0) Mean Corpuscular Volume 86.1fL (81-100) Mean Corpuscular Hemoglobin 27.8pg (27.0-35.0) Mean Corpuscular Hemoglobin Concent 32.3% (32.0-37.0) Red Cell Distribution Width 13.3% (12.3-15.4) Platelet Count 302bil/L (150-400) Neutrophils (%) (Auto) 60.8% (40-74) Lymphocytes (%) (Auto) 30.5% (14-46) Monocytes (%) (Auto) 7.7% (4-12) Eosinophils (%) (Auto) 0.6% (0-5) Basophils (%) (Auto) 0.3% (0-3) Erythrocyte Sedimentation Rate 16mm/hr (0-32) Sodium Level 138mEq/L (134-144) Potassium Level 4.0mEq/L (3.5-5.2) Chloride Level 103mEq/L (97-108) Carbon Dioxide Level 21mmol/L (18-29) Blood Urea Nitrogen 16mg/dL (6-24) Creatinine 0.84mg/dL (0.57-1.00) Estimat Glomerular Filtration Rate 103mL/min (>59) Glucose Level 92mg/dL (60-99) Calcium Level 8.7mg/dL (8.5-10.1) Phosphorus Level 3.4mg/dL (2.5-4.9) Magnesium Level 2.3mg/dL (1.6-2.6) Total Bilirubin 0.4mg/dL (0.0-1.2) Aspartate Amino Transf (AST/SGOT) 17U/L (0-50) Alanine Aminotransferase (ALT/SGPT) 14U/L (0-32) Alkaline Phosphatase 78U/L (25-150) Troponin T < 0.010ug/L (0.0-0.011) Total Protein 6.0g/dL (6.4-8.4) Albumin 3.8g/dL (3.4-5.0) Procalcitonin 0.03ng/mL (0.00-0.08) Iron Level 50ug/dL (35-150) Total Iron Binding Capacity 282ug/dL (250-450) Percent Iron Saturation 18%sat (15-50) Unsaturated Iron Binding 231.7ug/dL Discharge Medications Discharge Medications Aspirin Chew (Aspirin Chew) 81 Mg Chew 81 MG PO DAILY Prescribed by: CARMENCITA LEON MD Pantoprazole (Pantoprazole DR) 40 Mg Tablet. 40 MG PO DAILYAC Prescribed by: CARMENCITA LEON MD Sertraline HCl (Sertraline) 50 Mg Tablet 50 MG PO DAILY (Reported) Followup Plan Discharge Diet: No restrictions Discharge Activity: No restrictions Follow-up with PCP in: 1 week Carmencita Leon MD Nov 06, 2016 15:24
--- NOTE | 2016-11-06 16:14 | NUR ---
Discharge: Patient discharged to home @ approx 1610. IV d/c'd intact, telemetry removed, recycling technician notified. Personal belongings sent home with patient. Reviewed new prescriptions, home medication list, d/c instructions and follow up appointments. Verbalized understanding. Discharged via wheelchair accompanied by . No apparent distress noted at time of discharge.
--- NOTE | 2016-11-06 16:34 | NUR ---
Social Work: Discharge / Multidisciplinary Rounds Data: EMR reviewed. Patient is on day 2 of hospitalization for abdominal pain and elevated WBC per H&P. Patient's insurance is [employer] and patient has no PCP listed at this time. Patient was discussed in morning rounds. No concerns were noted by staff or MD. Patient is from home with spouse. Patient has been deemed medically stable for discharge today per MD. PT has completed evaluation of patient and recommendation has been made for home with no needs. Patient will discharge home today. Transportation will be provided by spouse. Patient has no additional needs at this time. Assessment: Patient who is from home with spouse. Plan: Patient will discharge home today. Transportation will be provided by spouse via POV. Patient has no additional needs at this time. ROLANDO Weiss
== END 2016-11-06 16:10 | disposition home or self-care (01) | DRG 948 ==
LOC: SED 00:41 → MPC 06:01 → OBSVTOIN 06:01
PROVIDERS: ADMIT Internal Medicine; ATTEND Internal Medicine
DX: R53.1 Weakness (principal); R20.0 Anesthesia of skin; R55 Syncope and collapse; R10.13 Epigastric pain; R51 Headache; R07.9 Chest pain, unspecified; D72.829 Elevated white blood cell count, unspecified; F41.8 Other specified anxiety disorders; I10 Essential (primary) hypertension; F32.9 Major depressive disorder, single episode, unspecified; R11.2 Nausea with vomiting, unspecified; D64.9 Anemia, unspecified